=== PATIENT | female | born 1955 | race Caucasian/White ===

== ENCOUNTER 2016-06-30 00:41 | Inpatient (IN) | payer MEDICARE, MEDICAID ==
[~2016-06-30] VITALS: Ht 165.1 cm; Wt 82.1 kg
[2016-06-30] VITALS (21 sets, daily range): BP systolic 109–147; BP diastolic 65–90; PULSE 74–119; RESP 16–35; TEMP 97.5–98.4; O2SAT 89–98
[~2016-06-30 00:41] MED LIST: ADVAI500I PO; ALBU1AER INH; AZIT250T74 PO; BENZ100 PO; CARV12.5 PO; CLON1 PO; DUONI NEB; FURO20 PO; LISI-363 PO; MONT10TA2 PO; PROT40TA PO; QUET1TAB65 PO; SERT100 PO; SYMB160A INH
[2016-06-30] MEDS ORDERED: SODIUM CHLORIDE 0.9% FLUSH 10 ML FLUSH IVF PRN ×2 (01:00→02:15)
[2016-06-30] MEDS ORDERED: PROT40TA PO (01:03)
[2016-06-30] MEDS ORDERED: DULE100A INH (01:03)
[2016-06-30] MEDS ORDERED: CLON1TAB PO (01:03)
[2016-06-30] MEDS ORDERED: FURO1TAB62 PO (01:03)
[2016-06-30] MEDS ORDERED: CARV10 PO (01:03)
[2016-06-30] MEDS ORDERED: ALBUAER3 INH (01:03)
[2016-06-30] MEDS ORDERED: SERO400T PO (01:03)
[2016-06-30] MEDS ORDERED: LISI-515 PO (01:03)
--- NOTE | 2016-06-30 01:04 | PD ---
HPI Chief Complaint: Respiratory Symptoms Time Seen by Provider: 00:55 Travel History International Travel<30 days: No Contact w/Intl Traveler<30days: No Traveled to known affect area: No History of Present Illness HPI 61 year-old female presents to the emergency department by private transportation for evaluation of exacerbation of COPD. Patient has COPD, CHF, sleep apnea with CPAP at bedtime, uses as needed supplemental oxygen but does not know how many liters per minute nasal cannula she uses at bedtime, hypertension, anxiety depression. Symptoms have been present times one week. Patient denies fever or chills. Patient denies chest pain. Cough has been productive of white sputum. Patient has history of environmental and seasonal allergies. Patient denies tobacco use. PFSH Past Medical History Narrative Medical COPD, hypertension, dyslipidemia, steroid-induced hyperglycemia, CHF, bipolar disorder, sleep apnea, hepatitis C, orthopedic surgery, eye surgery, cholecystectomy, lumbar biopsynegative, no tobacco use, nursing notes reviewed Arthritis: Yes Asthma: Yes Autoimmune Disease: No Blood Disorders: No Anxiety: Yes Depression: Yes Heart Rhythm Problems: No Cancer: No Cardiac Catheterization: No Cardiovascular Problems: Yes (PVD) High Cholesterol: Yes Chemotherapy: No Chest Pain: No Congestive Heart Failure: Yes COPD: Yes Cerebrovascular Accident: No Coronary Artery Disease: No Diabetes: No (hyperglycemia secondary to steroid use) Diminished Hearing: No Endocrine: Yes (HYPERGLYCEMIA R/T STEROID USE) Gastrointestinal Disorders: Yes GERD: Yes (GERD) Glaucoma: No Genitourinary: No Headaches: Yes Hepatitis: Yes (C) Hiatal Hernia: No Hypertension: Yes Immune Disorder: No Implanted Vascular Access Dvce: Yes Kidney Stones: No Musculoskeletal: Yes Neurologic: Yes Psychiatric: Yes (BIPOLAR) Reproductive: No Respiratory: Yes Immunizations Current: Yes Migraines: No Myocardial Infarction: No Pneumonia: Yes Renal Failure: No Seizures: No Sleep Apnea: Yes (CPAP @ HOME. DOES NOT USE) Thyroid Disease: No Ulcer: No Menopausal: Yes : 1 Para: 1 Miscarriage: 0 : 0 Past Surgical History Abdominal Surgery: Yes (LIVER BIOPSY, CHOLECYSTECTOMY) AICD: No Appendectomy: No Arteriovenous Shunt: No Body Medical Devices: HARDWARE IN R FA Cardiac Surgery: No Cholecystectomy: Yes Coronary Artery Bypass Graft: No Ear Surgery: No Endocrine Surgery: No Eye Surgery: Yes (R EYE "LAZY" 1959) Genitourinary Surgery: No Gynecologic Surgery: No Insulin Pump: No Joint Replacement: No Neurologic Surgery: No Oral Surgery: Yes (WISDOM TOOTH EXTRACTION) Pacemaker: No Thoracic Surgery: Yes (BIOPSY LUNGS-NEGATIVE) Other Surgery: Yes Social History Alcohol Use: No Tobacco Use: No (QUIT JANUARY 2013) Substance Use: No Allergies-Medications (Allergen,Severity, Reaction): Coded Allergies: Penicillin (Verified Allergy, Severe, UNKNOWN, 06/30/16) WAS TOLD ALLERGIC A CHILD *MDRO Multi-Drug Resistant Organism (Verified Allergy, Unknown, 06/30/16) MRSA bronch washings 05/2006 MRSA Screen #1 on 08/25/2014 negative, MRSA Screen #2 on 08/27/2014 negative. No need to isolate for history of MRSA prior to 08/27/2014 per Infection Control. Reported Meds & Prescriptions Reported Meds & Active Scripts Active Reported Flonase Nasal [place] (Fluticasone Nasal [place]) 50 Mcg/Act [place] 50 Mcg EACH NARE BID Zoloft (Sertraline HCl) 100 Mg Tab 100 Mg PO DAILY Dulera 120 Act Inh (Mometasone-Formoterol 120 Act Inh) 100-5 Mcg/Act Inh 2 Puff INH BID Seroquel (Quetiapine Fumarate) 400 Mg Tab 500 Mg PO HS Protonix (Pantoprazole Sodium) 40 Mg Tab 40 Mg PO DAILY Lisinopril 20 Mg Tab 20 Mg PO DAILY Lasix (Furosemide) 20 Mg Tab 20 Mg PO BID Clonazepam 1 Mg Tab 1 Mg PO BID Coreg Cr 24 HR (Carvedilol) 10 Mg Cap 12.5 Mg PO DAILY Proair Hfa 8.5 GM Inh (Albuterol Sulfate) 90 Mcg/Act Aer 2 Puff INH Q4-6H PRN 108 mcg/actuation Review of Systems Except as stated in HPI: all other systems reviewed are Neg General / Constitutional: No: Fever, Chills HENT: No: Congestion Cardiovascular: No: Chest Pain or Discomfort Respiratory: Positive: Cough, Shortness of Breath, Wheezing, No: Pleuritic Pain Gastrointestinal: No: Nausea, Vomiting, Abdominal Pain Genitourinary: No: Flank Pain Musculoskeletal: No: Myalgias, Arthralgias, Edema Skin: No Rash Neurologic: No: Weakness Psychiatric: Positive: Anxiety Endocrine: No: Heat Intolerance Hematologic/Lymphatic: No: Easy Bruising Physical Exam Narrative GENERAL: Well-developed well-nourished female with respiratory distress and some accessory muscle use; no stridor or hoarseness SKIN: Warm and dry. HEAD: Normocephalic. EYES: No scleral icterus. No injection or drainage. NECK: Supple, trachea midline. No JVD or lymphadenopathy. CARDIOVASCULAR: Increased Regular rate and rhythm without murmurs, gallops, or rubs. RESPIRATORY: Breath sounds equal bilaterally diffuse expiratory wheezes throughout all lung myers no Rales or rhonchi. No accessory muscle use. GASTROINTESTINAL: Abdomen soft, non-tender, nondistended. MUSCULOSKELETAL: No cyanosis, or edema. BACK: Nontender without obvious deformity. No CVA tenderness. Data Data Last Documented VS Vital Signs Date Time Temp Pulse Resp B/P Pulse Ox O2 Delivery O2 Flow Rate FiO2 06/30/16 02:12 97 Nasal Cannula 2.00 06/30/16 00:47 97.5 95 24 142/90 Orders Complete Blood Count With Diff (06/30/16 00:55) Comprehensive Metabolic Panel (06/30/16 00:55) B-Type Natriuretic Peptide (06/30/16 00:55) Magnesium (Mg) (06/30/16 00:55) Troponin I (06/30/16 00:55) Iv Access Insert/Monitor (06/30/16 00:55) Ecg Monitoring (06/30/16 00:55) Oximetry (06/30/16 00:55) Oxygen Administration (06/30/16 00:55) Chest, Single Ap (06/30/16 00:55) Sodium Chloride 0.9% Flush (Ns Flush) (06/30/16 01:00) Albuterol-Ipratropium Neb (Duoneb Neb) (06/30/16 01:00) Ondansetron Inj (Zofran Inj) (06/30/16 01:15) Electrocardiogram (06/30/16 ) Methylprednisolone So Succ Inj (Solumedr (06/30/16 01:30) Acetaminophen (Tylenol) (06/30/16 02:00) Guaifen-Cod 200-20 Mg/10ml Liq (Robituss (06/30/16 02:00) Albuterol-Ipratropium Neb (Duoneb Neb) (06/30/16 02:15) Admit Order (Ed Use Only) (06/30/16 ) ^ Saline Lock (06/30/16 02:10) Resp Oxygen Michael C Titrat 1-4 L (06/30/16 ) ^ Notify Dr: Other (06/30/16 02:10) Sodium Chloride 0.9% Flush (Ns Flush) (06/30/16 09:00) Sodium Chloride 0.9% Flush (Ns Flush) (06/30/16 02:15) Labs Laboratory Tests Test 06/30/16 01:10 White Blood Count 8.7 TH/MM3 Red Blood Count 4.68 MIL/MM3 Hemoglobin 12.0 GM/DL Hematocrit 37.0 % Mean Corpuscular Volume 79.0 FL Mean Corpuscular Hemoglobin 25.7 PG Mean Corpuscular Hemoglobin 32.6 % Concent Red Cell Distribution Width 14.1 % Platelet Count 283 TH/MM3 Mean Platelet Volume 6.5 FL Neutrophils (%) (Auto) 50.3 % Lymphocytes (%) (Auto) 34.3 % Monocytes (%) (Auto) 6.4 % Eosinophils (%) (Auto) 8.6 % Basophils (%) (Auto) 0.4 % Neutrophils # (Auto) 4.4 TH/MM3 Lymphocytes # (Auto) 3.0 TH/MM3 Monocytes # (Auto) 0.6 TH/MM3 Eosinophils # (Auto) 0.7 TH/MM3 Basophils # (Auto) 0.0 TH/MM3 CBC Comment DIFF FINAL Differential Comment Sodium Level 139 MEQ/L Potassium Level 3.9 MEQ/L Chloride Level 102 MEQ/L Carbon Dioxide Level 27.2 MEQ/L Anion Gap 10 MEQ/L Blood Urea Nitrogen 24 MG/DL Creatinine 1.30 MG/DL Estimat Glomerular Filtration 42 ML/MIN Rate Random Glucose 166 MG/DL Calcium Level 8.9 MG/DL Magnesium Level 1.8 MG/DL Total Bilirubin 0.3 MG/DL Aspartate Amino Transf 20 U/L (AST/SGOT) Alanine Aminotransferase 26 U/L (ALT/SGPT) Alkaline Phosphatase 98 U/L Troponin I LESS THAN 0.02 NG/ML B-Type Natriuretic Peptide 26 PG/ML Total Protein 8.6 GM/DL Albumin 4.0 GM/DL MDM Medical Decision Making Medical Screen Exam Complete: Yes Emergency Medical Condition: Yes Medical Record Reviewed: Yes Interpretation(s) EKG normal sinus rhythm rate 78 QS septally age-indeterminate no acute ST elevation or injury pattern change noted Last Impressions Chest X-Ray 06/30/16 0055 Signed Impressions: Service Date/Time: Thursday, June 30, 2016 01:19 - CONCLUSION: No acute cardiopulmonary abnormality is identified. Justus Ying MD CBC & BMP Diagram 06/30/16 01:10 Vital Signs Date Time Temp Pulse Resp B/P Pulse Ox O2 Delivery O2 Flow Rate FiO2 06/30/16 01:56 Nasal Cannula 2 06/30/16 01:20 Room Air 06/30/16 01:13 99 Aerosol Mask 6 06/30/16 00:47 97.5 95 24 142/90 90 Troponin I less than 0.02, not elevated; BNP: 26, not elevated Differential Diagnosis Exacerbation COPD, bronchitis, pneumonia, CHF, ACS, PE Narrative Course Patient placed on quality assurance monitor body IV access obtained specimens collected and sent for resulting patient administered DuoNeb 2 DuoNeb updraft 1, Solu-Medrol 125 mg IV, Zofran 4 mg IV Patient complains of severe headache after forceful coughing repetitively since arrival; cough productive of white mucous no phlegm no hemoptysis. Patient is afebrile. Patient administer acetaminophen 650 mg times one dose. O2 saturation on 2 L/m nasal cannula supplemental oxygen 95-96% patient given additional updraft treatment. More comfortable but continued to have spasms of coughing given one time dose of cough medicine. Patient now able to talk without episodes of coughing spasm. No accessory muscle use. Sepsis Criteria SIRS Criteria (2 or more): Heart rate over 90, RR > 20 or PaCO2 < 32 Physician Communication Physician Communication discussed with Royce Qiu PA-C admit to Dr Saldana; call back re: obs v inpatient ---OBS Diagnosis Primary Impression: COPD (chronic obstructive pulmonary disease) Qualified Code: J44.1 - Chronic obstructive pulmonary disease with acute exacerbation Admitting Information Admitting Physician Requests: Lin Delgado MD Jun 30, 2016 01:04
[2016-06-30] MEDS ORDERED: FLUT1SPR5 EACH NARE (01:05)
[2016-06-30] MEDS: RESP: ALBUTEROL 2.5 MG/IPRATROPIUM 0.5 MG NEB (SCH) INH ×5 (01:05→22:00)
[2016-06-30] MEDS ORDERED: ZOLO100T PO (01:05)
[2016-06-30 01:15] LABS: AUTOMATED NEUTROPHIL # 4.4 TH/MM3 (1.8-7.7); BASOPHIL % 0.4 % (0.0-2.0); EOSINOPHIL # 0.7 TH/MM3 (0-0.4); EOSINOPHIL % 8.6 % (0.0-4.0); HEMO FLAGS DIFF FINAL; LYMPH % 34.3 % (9.0-44.0); MEAN CORPUSCULAR HEMOGLOBIN 25.7 PG (27.0-34.0); MEAN CORPUSCULAR HGB CONC 32.6 % (32.0-36.0); MONO % 6.4 % (0.0-8.0); NEUT % 50.3 % (16.0-70.0); PLATELET COUNT 283 TH/MM3 (150-450); RED BLOOD COUNT 4.68 MIL/MM3 (4.00-5.30); RED CELL DISTRIBUTION WIDTH 14.1 % (11.6-17.2); WHITE BLOOD COUNT 8.7 TH/MM3 (4.0-11.0)
[2016-06-30] MEDS ORDERED: ONDANSETRON HCL 4 MG/2 ML VIAL IV PUSH ONE (01:15)
[2016-06-30 01:22] LABS: CHLORIDE 102 MEQ/L (98-107); POTASSIUM 3.9 MEQ/L (3.5-5.1); SODIUM (NA) 139 MEQ/L (136-145)
[2016-06-30 01:26] LABS: ANION GAP 10 MEQ/L (5-15); BICARBONATE 27.2 MEQ/L (21.0-32.0); BLOOD UREA NITROGEN 24 MG/DL (7-18); MAGNESIUM 1.8 MG/DL (1.5-2.5)
[2016-06-30 01:29] LABS: ALT (GPT) 26 U/L (10-53); AST (GOT) 20 U/L (15-37); GLOMERULAR FILTRATION RATE 42 ML/MIN (>89)
[2016-06-30 01:30] LABS: TOTAL BILIRUBIN ADULT 0.3 MG/DL (0.2-1.0)
[2016-06-30] MEDS ORDERED: methylPREDNISolone SOD SUCC 125 MG/2 ML VIAL IV PUSH ONE (01:30)
--- NOTE | 2016-06-30 01:30 | RADHPO ---
EXAM DATE/TIME: 06/30/2016 01:19 [facility] COMPARISON: CHEST SINGLE AP, April 26, 2015, 5:03. INDICATIONS : Shortness of breath for 12 hours MEDICAL HISTORY : Chronic obstructive pulmonary disease. SURGICAL HISTORY : None. ENCOUNTER: Initial ACUITY: 1 day PAIN SCORE: 0/10 LOCATION: Bilateral chest FINDINGS: Portable AP view of the chest demonstrates a normal-sized cardiac silhouette. No effusion, consolidat ion, or pneumothorax is visualized. The bones and soft tissues demonstrate no acute abnormality. CONCLUSION: No acute cardiopulmonary abnormality is identified. Justus Ying MD on June 30, 2016 at 1:28 Board Certified Radiologist. This report was verified electronically.
[2016-06-30 01:32] LABS: ALKALINE PHOSPHATASE 98 U/L (45-117)
[2016-06-30] MEDS ORDERED: ACETAMINOPHEN 325 MG TAB PO ONE (02:00)
[2016-06-30] MEDS ORDERED: guaiFENesin/CODEINE SYRUP 200 MG/20 MG/10 ML CUP PO ONE (02:00)
[2016-06-30] MEDS ORDERED: RESP: ALBUTEROL 2.5 MG/IPRATROPIUM 0.5 MG NEB (SCH) NEB ONE (02:15)
[2016-06-30] MEDS: SODIUM CHLOR 0.9% 1000 ML INJ 1,000 ML IV SCH ×2 (02:58→16:07)
[2016-06-30] MEDS ORDERED: BISACODYL 10 MG SUPP RECTAL PRN (03:00)
[2016-06-30] MEDS ORDERED: RESP: ALBUTEROL 2.5 MG/3 ML NEB (PRN) INH (03:00)
[2016-06-30] MEDS ORDERED: SENNOSIDES 8.6 MG TAB PO PRN (03:00)
[2016-06-30] MEDS ORDERED: ACETAMINOPHEN 325 MG TAB PO PRN (03:00)
[2016-06-30] MEDS ORDERED: ONDANSETRON HCL 4 MG/2 ML VIAL IVP PRN (03:00)
[2016-06-30] MEDS: HEPARIN SODIUM - SQ 10,000 UNITS/ML VIAL SQ SCH ×2 (03:01→15:00)
[2016-06-30] MEDS: traMADol HCL 50 MG TAB PO PRN ×3 (06:28→18:23)
[2016-06-30] MEDS: guaiFENesin/CODEINE SYRUP 200 MG/20 MG/10 ML CUP PO PRN ×2 (07:57→18:26)
[2016-06-30] MEDS ORDERED: SODIUM CHLORIDE 0.9% FLUSH 10 ML FLUSH IV FLUSH SCH (09:00)
[2016-06-30] MEDS: SODIUM CHLORIDE 0.9% FLUSH 10 ML FLUSH IV FLUSH SCH ×2 (09:50→20:31)
[2016-06-30] MEDS: PANTOPRAZOLE SOD 40 MG DELAYED RELEASE TAB PO SCH (09:51)
[2016-06-30] MEDS: SERTRALINE HCL 100 MG TAB PO SCH (09:51)
[2016-06-30] MEDS: methylPREDNISolone SOD SUCC 125 MG/2 ML VIAL IVP SCH ×3 (09:51→20:31)
[2016-06-30] MEDS: LISINOPRIL 20 MG TAB PO SCH (09:51)
[2016-06-30] MEDS: CARVEDILOL 12.5 MG TAB PO SCH (09:51)
[2016-06-30] MEDS: FUROSEMIDE 20 MG TAB PO SCH ×2 (09:52→18:00)
--- NOTE | 2016-06-30 11:48 | MH ---
cc: RAGHU MACHADO MD DATE OF ADMISSION 06/30/2016 CHIEF COMPLAINT Shortness of breath HISTORY OF PRESENT ILLNESS This is a 61-year-old female with past medical and surgical history significant for COPD, hypertension, hyperlipidemia, steroid induced hyperglycemia, congestive heart failure, bipolar disorder, sleep apnea, hepatitis C, eye surgery, cholecystectomy, history of asthma and depression, peripheral vascular disease, headache, gastroesophageal reflux disease, hepatitis C, C-PAP at home for sleep apnea, has hardware in the right forearm and hip hardware right side, cholecystectomy, liver biopsy, has a right lazy eye, wisdom tooth extraction, a lung biopsy which was negative. He came to the ER at [facility] complaining of shortness of breath. He uses C-PAP at bedtime and also uses supplemental oxygen as needed and she says she has been feeling short of breath to the extent that she decided to go to the [facility] in [place]. She has some cough productive of white sputum. She has a history of environmental and seasonal allergies. When I examined the patient, the patient feels better and denies any chest pain, any abdominal pain, any nausea, vomiting, diarrhea, constipation or any other symptoms. Other than that, nothing significant. PAST MEDICAL AND SURGICAL HISTORY As dictated above. SOCIAL HISTORY Denies smoking, but she is ex-smoker smoked for 40 years one pack a day and quit in 2012. Denies alcohol or drug abuse. She lives at home with son. She is on disability. She worked for the [employer] in the past. FAMILY HISTORY Significant for cancer. ALLERGIES PENICILLIN MEDICATIONS Include: 1. Flonase nasal spray 50 mcg one spray to nostril twice a day. 2. Zoloft 100 mg p.o. daily 3. Dulera two puffs inhalation twice a day 4. Seroquel 400 mg p.o. at bedtime 5. Protonix 40 mg p.o. daily 6. Lisinopril 20 mg daily 7. Lasix 20 mg p.o. b.i.d. 8. Clonazepam 1 mg p.o. b.i.d. 9. Coreg 12.5 mg p.o. daily 10. ProAir HFA two puffs inhalation q4-6h REVIEW OF SYSTEMS Positive for mild short of breath, all other review of systems are negative. PHYSICAL EXAMINATION This is a 61-year female laying on the bed comfortably not in acute distress. VITAL SIGNS: Temperature 98.4, heart rate 83, respirations 18, blood pressure 147/81, O2 saturation 98% on two liters nasal cannula. HEENT: Normocephalic, atraumatic. EOMI. PERRL. Oral mucosa moist. NECK: Supple. No visible thyromegaly or neck mass. Trachea is central. CARDIOVASCULAR: Regular rate and rhythm. RESPIRATORY: Bilateral wheezing, decreased air entry bilaterally. ABDOMEN: Soft, nontender. Bowel sounds audible. EXTREMITIES: No cyanosis or clubbing. Full range of motion of all extremities. NEUROLOGIC: Awake, alert, and oriented x4. No focal deficits. SKIN: Warm and dry. PSYCH: The patient is cooperative. Mood and affect is normal. LABORATORY DATA Include CBC is totally unremarkable. BMP totally unremarkable except for creatinine 1.30 high, BUN 24 high, GFR 42 low, glucose 166 high, troponin-I less than 0.02, BNP 26, total protein 8.6, albumin 4.0. LFTs are normal. Chest x-ray Was done shows no acute cardiopulmonary abnormality identified. ASSESSMENT/PLAN 1. This is a 61-year female who came to the ER diagnosed with shortness of breath most likely secondary to COPD/CHF exacerbation, most likely acute on chronic systolic heart failure. We will do strict I's and O's daily with fluid restriction to 1.5 liters a day. Salt restriction to 2 grams a day. The patient is on Lasix 20 mg p.o. daily, Solu-Medrol 60 mg IV q6-hour, Robitussin AC 5 mL q6-hour, DuoNeb nebulization q6h. I will consult pulmonary for further recommendation. 2. A history of bipolar disorder. Continue home medications. 3. History of depression. Continue Zoloft. 4. History of hypertension. Continue home medication. We will monitor blood pressure. 5. History of anxiety, continue his clonazepam. 6. History of congestive heart failure most likely acute on chronic systolic heart failure. Continue the home medications. 7. Drug induced hyperglycemia. We will monitor sugar. 8. History of sleep apnea. The patient is on C-PAP. 9. History of hepatitis C. 10. Hyperlipidemia. Continue home medication. 11. DVT prophylaxis, heparin 5000 units subcutaneous twice a day. 12. GI prophylaxis Protonix 40 mg p.o. daily. We are going to manage the patient on a daily basis and make recommendations on a daily basis. Raghu Machado MD EA/JESSICA /11:00 AM /11:25 AM
[2016-06-30] MEDS: FLUTICASONE PROPIONATE 50 MCG/ACT 16 GM NASAL SPRAY EACH NARE SCH ×2 (12:09→20:31)
--- NOTE | 2016-06-30 16:53 | EKG ---
Date Performed: 06/30/2016 Time Performed: 01:58:24 PTAGE: 61 years EKG: Sinus rhythm Normal ECG Compared to prior tracing no significant change PREVIOUS TRACING : 04/25/2015 04.14 DOCTOR: Lizzeth Mcdermott Interpretating Date/Time 06/30/2016 16:51:33
[2016-06-30] MEDS: QUEtiapine FUMARATE 100 MG TAB PO SCH (20:32)
[2016-06-30] MEDS: clonazePAM 1 MG TAB PO SCH (22:05)
[2016-07-01] VITALS (22 sets, daily range): BP systolic 93–140; BP diastolic 57–70; PULSE 66–90; RESP 14–32; TEMP 97.4–98; O2SAT 93–96
[2016-07-01] MEDS: SODIUM CHLOR 0.9% 1000 ML INJ 1,000 ML IV SCH ×2 (02:00→18:47)
[2016-07-01] MEDS: methylPREDNISolone SOD SUCC 125 MG/2 ML VIAL IVP SCH ×4 (02:06→21:05)
[2016-07-01] MEDS: HEPARIN SODIUM - SQ 10,000 UNITS/ML VIAL SQ SCH ×2 (02:06→14:45)
[2016-07-01] MEDS: guaiFENesin/CODEINE SYRUP 200 MG/20 MG/10 ML CUP PO PRN ×3 (02:06→18:07)
[2016-07-01] MEDS: traMADol HCL 50 MG TAB PO PRN ×3 (02:07→18:08)
[2016-07-01] MEDS: RESP: ALBUTEROL 2.5 MG/IPRATROPIUM 0.5 MG NEB (SCH) INH ×4 (02:28→21:25)
[2016-07-01 06:11] LABS: AUTOMATED NEUTROPHIL # 5.9 TH/MM3 (1.8-7.7); BASOPHIL % 0.1 % (0.0-2.0); HEMATOCRIT 31.1 % (35.0-46.0); HEMO FLAGS DIFF FINAL; LYMPH % 10.4 % (9.0-44.0); LYMPHOCYTE # 0.7 TH/MM3 (1.0-4.8); MEAN CELL VOLUME 79.8 FL (80.0-100.0); MEAN CORPUSCULAR HEMOGLOBIN 25.7 PG (27.0-34.0); MEAN CORPUSCULAR HGB CONC 32.3 % (32.0-36.0); MONO % 3.6 % (0.0-8.0); NEUT % 85.9 % (16.0-70.0); PLATELET COUNT 183 TH/MM3 (150-450); RED CELL DISTRIBUTION WIDTH 13.9 % (11.6-17.2); WHITE BLOOD COUNT 6.8 TH/MM3 (4.0-11.0)
[2016-07-01 06:13] LABS: CHLORIDE 100 MEQ/L (98-107); POTASSIUM 4.4 MEQ/L (3.5-5.1); SODIUM (NA) 138 MEQ/L (136-145)
[2016-07-01 06:17] LABS: ANION GAP 10 MEQ/L (5-15); BICARBONATE 28.2 MEQ/L (21.0-32.0); BLOOD UREA NITROGEN 25 MG/DL (7-18)
[2016-07-01 06:20] LABS: ALT (GPT) 21 U/L (10-53); AST (GOT) 11 U/L (15-37); GLOMERULAR FILTRATION RATE 46 ML/MIN (>89)
[2016-07-01 06:21] LABS: TOTAL BILIRUBIN ADULT 0.3 MG/DL (0.2-1.0)
[2016-07-01 06:23] LABS: ALKALINE PHOSPHATASE 71 U/L (45-117)
[2016-07-01] MEDS: FUROSEMIDE 20 MG TAB PO SCH ×2 (09:00→18:00)
[2016-07-01] MEDS: SERTRALINE HCL 100 MG TAB PO SCH (09:37)
--- NOTE | 2016-07-01 09:37 | HHI.PR ---
Subjective History of Present Illness Patient still SOB and have wheezing and coughing have yellow phlegm. Review of Systems Constitutional Constitutional: Fatigue, Weakness Pulmonary Respiratory: Coughing, Shortness of Breath, Wheezing Vitals/Results Intake & Output 06/30/16 06/30/16 07/01/16 15:00 23:00 07:00 Intake Total 285 ml 1041 ml 240 ml Output Total 900 ml 700 ml Balance 285 ml 141 ml -460 ml Intake Oral 720 ml 240 ml IV Total 285 ml 321 ml Output Urine Total 900 ml 700 ml Vital Signs Vital Signs Date Time Temp Pulse Resp B/P Pulse Ox O2 Delivery O2 Flow Rate FiO2 07/01/16 06:00 70 07/01/16 04:00 97.8 82 14 140/70 94 07/01/16 03:00 79 07/01/16 02:28 95 Nasal Cannula 2.00 07/01/16 02:00 78 07/01/16 01:57 77 07/01/16 00:00 97.6 77 14 114/59 93 07/01/16 00:00 77 06/30/16 23:00 85 06/30/16 22:00 77 06/30/16 20:14 89 21 06/30/16 20:00 98.0 80 24 124/74 94 06/30/16 20:00 79 06/30/16 19:00 80 06/30/16 18:00 92 06/30/16 17:00 86 06/30/16 16:00 98.2 88 35 136/81 92 06/30/16 16:00 96 06/30/16 15:00 80 06/30/16 14:00 78 06/30/16 13:00 80 06/30/16 12:00 74 06/30/16 12:00 98.0 74 16 114/81 96 06/30/16 10:40 97 Nasal Cannula 2.00 06/30/16 10:00 78 CBC/BMP: 07/01/16 0520 07/01/16 0520 Lab Results Laboratory Tests Test 07/01/16 05:20 White Blood Count 6.8 TH/MM3 Red Blood Count 3.90 MIL/MM3 Hemoglobin 10.1 GM/DL Hematocrit 31.1 % Mean Corpuscular Volume 79.8 FL Mean Corpuscular Hemoglobin 25.7 PG Mean Corpuscular Hemoglobin 32.3 % Concent Red Cell Distribution Width 13.9 % Platelet Count 183 TH/MM3 Mean Platelet Volume 6.6 FL Neutrophils (%) (Auto) 85.9 % Lymphocytes (%) (Auto) 10.4 % Monocytes (%) (Auto) 3.6 % Eosinophils (%) (Auto) 0.0 % Basophils (%) (Auto) 0.1 % Neutrophils # (Auto) 5.9 TH/MM3 Lymphocytes # (Auto) 0.7 TH/MM3 Monocytes # (Auto) 0.2 TH/MM3 Eosinophils # (Auto) 0.0 TH/MM3 Basophils # (Auto) 0.0 TH/MM3 CBC Comment DIFF FINAL Differential Comment Sodium Level 138 MEQ/L Potassium Level 4.4 MEQ/L Chloride Level 100 MEQ/L Carbon Dioxide Level 28.2 MEQ/L Anion Gap 10 MEQ/L Blood Urea Nitrogen 25 MG/DL Creatinine 1.20 MG/DL Estimat Glomerular Filtration 46 ML/MIN Rate Random Glucose 261 MG/DL Calcium Level 8.3 MG/DL Total Bilirubin 0.3 MG/DL Aspartate Amino Transf 11 U/L (AST/SGOT) Alanine Aminotransferase 21 U/L (ALT/SGPT) Alkaline Phosphatase 71 U/L Total Protein 7.8 GM/DL Albumin 3.6 GM/DL Physical Exam General General Appearance: No Acute Distress, Comfortable Eyes Eye Exam: Pupils Equal, Pupils Reactive, Sclera White, Extraocular Movement Intact Throat Throat Exam: Oral Mucosa [place] & Moist, Oral Pharynx Normal Neck Neck Exam: Neck Supple, Trachea Midline Pulmonary Resp Exam: Crackles Resp Remarks Bilateral wheezing. decreased air entry bilateral. Cardiology CV Exam: Regular, Normal Sinus Rhythm Gastrointestinal/Abdomen GI Exam: Soft, Non-Tender, Bowel Sounds Present Musculoskeletal MS Exam: Normal Tone Integumentary Skin Exam: Warm, Dry Extremeties Extremities Exam: No Edema Neurologic Neuro Exam: Alert, Awake, Oriented, Speech Clear, Moving All Extremities VTE Prophylaxis VTE Prophylaxis Meds: Heparin PUD Prophylasis PUD Prophylaxis: Protonix Assessment/Plan Assessment/Plan ASSESSMENT/PLAN 1. This is a 61-year female who came to the ER diagnosed with shortness of breath most likely secondary to COPD/CHF exacerbation, most likely acute on chronic systolic heart failure. We will do strict I's and O's daily with fluid restriction to 1.5 liters a day. Salt restriction to 2 grams a day. The patient is on Lasix 20 mg p.o. daily, Solu-Medrol 60 mg IV q6-hour, Robitussin AC 5 mL q6-hour, DuoNeb nebulization q6h. 2. A history of bipolar disorder. Continue home medications. 3. History of depression. Continue Zoloft. 4. History of hypertension. Continue home medication. We will monitor blood pressure. 5. History of anxiety, continue his clonazepam. 6. History of congestive heart failure most likely acute on chronic systolic heart failure. Continue the home medications. 7. Drug induced hyperglycemia. We will monitor sugar. 8. History of sleep apnea. The patient is on C-PAP. 9. History of hepatitis C. 10. Hyperlipidemia. Continue home medication. 11. DVT prophylaxis, heparin 5000 units subcutaneous twice a day. 12. GI prophylaxis Protonix 40 mg p.o. daily. Check CBC with diff CMP in AM. We are going to manage the patient on a daily basis and make recommendations on a daily basis. Discussed Condition with: Patient Raghu Saldana MD Jul 01, 2016 09:37
[2016-07-01] MEDS: clonazePAM 1 MG TAB PO SCH ×2 (09:38→21:05)
[2016-07-01] MEDS: PANTOPRAZOLE SOD 40 MG DELAYED RELEASE TAB PO SCH (09:38)
[2016-07-01] MEDS: LISINOPRIL 20 MG TAB PO SCH (09:38)
[2016-07-01] MEDS: CARVEDILOL 12.5 MG TAB PO SCH (09:38)
[2016-07-01] MEDS: SODIUM CHLORIDE 0.9% FLUSH 10 ML FLUSH IV FLUSH SCH ×2 (09:39→21:04)
[2016-07-01] MEDS: FLUTICASONE PROPIONATE 50 MCG/ACT 16 GM NASAL SPRAY EACH NARE SCH ×2 (09:40→21:03)
[2016-07-01] MEDS: QUEtiapine FUMARATE 100 MG TAB PO SCH (21:05)
[2016-07-02] VITALS (7 sets, daily range): BP systolic 102–150; BP diastolic 64–96; PULSE 67–86; RESP 18–22; TEMP 97.2–99; O2SAT 93–98
[2016-07-02] MEDS: methylPREDNISolone SOD SUCC 125 MG/2 ML VIAL IVP SCH ×4 (02:41→20:47)
[2016-07-02] MEDS: HEPARIN SODIUM - SQ 10,000 UNITS/ML VIAL SQ SCH ×3 (02:41→16:06)
[2016-07-02] MEDS: SODIUM CHLORIDE 0.9% FLUSH 10 ML FLUSH IV FLUSH PRN (02:41)
[2016-07-02] MEDS: traMADol HCL 50 MG TAB PO PRN ×3 (02:46→20:50)
[2016-07-02] MEDS: guaiFENesin/CODEINE SYRUP 200 MG/20 MG/10 ML CUP PO PRN ×3 (02:46→20:50)
[2016-07-02] MEDS: RESP: ALBUTEROL 2.5 MG/IPRATROPIUM 0.5 MG NEB (SCH) INH ×4 (03:26→21:07)
[2016-07-02 06:15] LABS: AUTOMATED NEUTROPHIL # 7.1 TH/MM3 (1.8-7.7); EOSINOPHIL % 0.1 % (0.0-4.0); HEMATOCRIT 32.2 % (35.0-46.0); HEMO FLAGS DIFF FINAL; LYMPHOCYTE # 0.7 TH/MM3 (1.0-4.8); MEAN CELL VOLUME 80.5 FL (80.0-100.0); MEAN CORPUSCULAR HEMOGLOBIN 25.5 PG (27.0-34.0); MEAN CORPUSCULAR HGB CONC 31.6 % (32.0-36.0); MONO % 3.2 % (0.0-8.0); NEUT % 88.7 % (16.0-70.0); PLATELET COUNT 196 TH/MM3 (150-450); RED BLOOD COUNT 3.99 MIL/MM3 (4.00-5.30); RED CELL DISTRIBUTION WIDTH 13.9 % (11.6-17.2); WHITE BLOOD COUNT 8.1 TH/MM3 (4.0-11.0)
[2016-07-02 06:31] LABS: CHLORIDE 102 MEQ/L (98-107); POTASSIUM 4.2 MEQ/L (3.5-5.1); SODIUM (NA) 141 MEQ/L (136-145)
[2016-07-02 06:38] LABS: ANION GAP 11 MEQ/L (5-15); BICARBONATE 27.7 MEQ/L (21.0-32.0); BLOOD UREA NITROGEN 23 MG/DL (7-18)
[2016-07-02 06:41] LABS: ALT (GPT) 19 U/L (10-53); AST (GOT) 9 U/L (15-37); GLOMERULAR FILTRATION RATE 57 ML/MIN (>89)
[2016-07-02 06:42] LABS: TOTAL BILIRUBIN ADULT 0.2 MG/DL (0.2-1.0)
[2016-07-02 06:44] LABS: ALKALINE PHOSPHATASE 79 U/L (45-117)
[2016-07-02] MEDS: SODIUM CHLOR 0.9% 1000 ML INJ 1,000 ML IV SCH ×2 (08:07→20:49)
[2016-07-02] MEDS: FLUTICASONE PROPIONATE 50 MCG/ACT 16 GM NASAL SPRAY EACH NARE SCH ×2 (09:00→20:47)
[2016-07-02] MEDS: SODIUM CHLORIDE 0.9% FLUSH 10 ML FLUSH IV FLUSH SCH ×2 (09:00→20:48)
[2016-07-02] MEDS: FUROSEMIDE 20 MG TAB PO SCH ×2 (11:03→16:04)
[2016-07-02] MEDS: PANTOPRAZOLE SOD 40 MG DELAYED RELEASE TAB PO SCH (11:03)
[2016-07-02] MEDS: SERTRALINE HCL 100 MG TAB PO SCH (11:03)
[2016-07-02] MEDS: clonazePAM 1 MG TAB PO SCH ×2 (11:03→20:48)
[2016-07-02] MEDS: CARVEDILOL 12.5 MG TAB PO SCH (11:03)
[2016-07-02] MEDS: LISINOPRIL 20 MG TAB PO SCH (11:03)
--- NOTE | 2016-07-02 11:55 | HHI.PR ---
Subjective History of Present Illness Patient still SOB and have wheezing and coughing have yellow phlegm. no acute issue transfered to medical floor from ICU. Review of Systems Constitutional Constitutional: Fatigue, Weakness Pulmonary Respiratory: Coughing, Shortness of Breath, Wheezing Vitals/Results Intake & Output 07/01/16 07/01/16 07/02/16 15:00 23:00 07:00 Intake Total 480 ml Output Total 900 ml 600 ml Balance -420 ml -600 ml Intake Oral 480 ml IV Total 0 ml Output Urine Total 900 ml 600 ml # Bowel Movements 0 1 Vital Signs Vital Signs Date Time Temp Pulse Resp B/P Pulse Ox O2 Delivery O2 Flow Rate FiO2 07/02/16 09:15 94 Nasal Cannula 2.00 07/02/16 04:00 97.8 77 18 102/64 97 07/02/16 04:00 77 07/02/16 00:00 97.8 81 20 110/73 93 07/02/16 00:00 67 07/01/16 21:25 95 Nasal Cannula 2.00 07/01/16 20:00 83 07/01/16 20:00 98.0 90 24 100/69 95 07/01/16 18:00 88 07/01/16 17:00 70 07/01/16 16:00 97.8 72 32 126/69 94 07/01/16 16:00 70 07/01/16 15:00 72 07/01/16 14:00 90 07/01/16 13:00 72 07/01/16 12:00 97.4 68 22 93/57 96 07/01/16 12:00 66 CBC/BMP: 07/02/16 0535 07/02/16 0535 Lab Results Laboratory Tests Test 07/02/16 05:35 White Blood Count 8.1 TH/MM3 Red Blood Count 3.99 MIL/MM3 Hemoglobin 10.2 GM/DL Hematocrit 32.2 % Mean Corpuscular Volume 80.5 FL Mean Corpuscular Hemoglobin 25.5 PG Mean Corpuscular Hemoglobin 31.6 % Concent Red Cell Distribution Width 13.9 % Platelet Count 196 TH/MM3 Mean Platelet Volume 6.5 FL Neutrophils (%) (Auto) 88.7 % Lymphocytes (%) (Auto) 8.0 % Monocytes (%) (Auto) 3.2 % Eosinophils (%) (Auto) 0.1 % Basophils (%) (Auto) 0.0 % Neutrophils # (Auto) 7.1 TH/MM3 Lymphocytes # (Auto) 0.7 TH/MM3 Monocytes # (Auto) 0.3 TH/MM3 Eosinophils # (Auto) 0.0 TH/MM3 Basophils # (Auto) 0.0 TH/MM3 CBC Comment DIFF FINAL Differential Comment Sodium Level 141 MEQ/L Potassium Level 4.2 MEQ/L Chloride Level 102 MEQ/L Carbon Dioxide Level 27.7 MEQ/L Anion Gap 11 MEQ/L Blood Urea Nitrogen 23 MG/DL Creatinine 1.00 MG/DL Estimat Glomerular Filtration 57 ML/MIN Rate Random Glucose 292 MG/DL Calcium Level 8.7 MG/DL Total Bilirubin 0.2 MG/DL Aspartate Amino Transf 9 U/L (AST/SGOT) Alanine Aminotransferase 19 U/L (ALT/SGPT) Alkaline Phosphatase 79 U/L Total Protein 7.5 GM/DL Albumin 3.5 GM/DL Physical Exam General General Appearance: No Acute Distress, Comfortable Eyes Eye Exam: Pupils Equal, Pupils Reactive, Sclera White, Extraocular Movement Intact Throat Throat Exam: Oral Mucosa [place] & Moist, Oral Pharynx Normal Neck Neck Exam: Neck Supple, Trachea Midline Pulmonary Resp Exam: Crackles Resp Remarks Bilateral wheezing. decreased air entry bilateral. Cardiology CV Exam: Regular, Normal Sinus Rhythm Gastrointestinal/Abdomen GI Exam: Soft, Non-Tender, Bowel Sounds Present Musculoskeletal MS Exam: Normal Tone Integumentary Skin Exam: Warm, Dry Extremeties Extremities Exam: No Edema Neurologic Neuro Exam: Alert, Awake, Oriented, Speech Clear, Moving All Extremities VTE Prophylaxis VTE Prophylaxis Meds: Heparin PUD Prophylasis PUD Prophylaxis: Protonix Assessment/Plan Assessment/Plan ASSESSMENT/PLAN 1. This is a 61-year female who came to the ER diagnosed with shortness of breath most likely secondary to COPD/CHF exacerbation, most likely acute on chronic systolic heart failure. We will do strict I's and O's daily with fluid restriction to 1.5 liters a day. Salt restriction to 2 grams a day. The patient is on Lasix 20 mg p.o. daily, Solu-Medrol 60 mg IV q6-hour, Robitussin AC 5 mL q6-hour, DuoNeb nebulization q6h. 2. A history of bipolar disorder. Continue home medications. 3. History of depression. Continue Zoloft. 4. History of hypertension. Continue home medication. We will monitor blood pressure. 5. History of anxiety, continue his clonazepam. 6. History of congestive heart failure most likely acute on chronic systolic heart failure. Continue the home medications. 7. Drug induced hyperglycemia. We will monitor sugar. 8. History of sleep apnea. The patient is on C-PAP. 9. History of hepatitis C. 10. Hyperlipidemia. Continue home medication. 11. DVT prophylaxis, heparin 5000 units subcutaneous twice a day. 12. GI prophylaxis Protonix 40 mg p.o. daily. Check CBC with diff CMP in AM. We are going to manage the patient on a daily basis and make recommendations on a daily basis. Discussed Condition with: Patient Raghu Saldana MD Jul 02, 2016 11:55
[2016-07-02] MEDS: QUEtiapine FUMARATE 100 MG TAB PO SCH (20:48)
[2016-07-02] MEDS: ALBUTEROL SULFATE 90 MCG/ACT HFA 8 GM INHALER INH PRN (21:01)
[2016-07-03] VITALS (8 sets, daily range): BP systolic 146–175; BP diastolic 71–114; PULSE 80–87; RESP 18–20; TEMP 96.2–97.9; O2SAT 95–98
[2016-07-03] MEDS: SODIUM CHLORIDE 0.9% FLUSH 10 ML FLUSH IV FLUSH PRN (01:39)
[2016-07-03] MEDS: guaiFENesin/CODEINE SYRUP 200 MG/20 MG/10 ML CUP PO PRN ×5 (01:39→22:42)
[2016-07-03] MEDS: traMADol HCL 50 MG TAB PO PRN ×4 (01:39→22:42)
[2016-07-03] MEDS: methylPREDNISolone SOD SUCC 125 MG/2 ML VIAL IVP SCH ×4 (01:39→19:48)
[2016-07-03] MEDS: cloNIDine HCL 0.1 MG TAB PO PRN ×2 (01:39→17:21)
[2016-07-03] MEDS: HEPARIN SODIUM - SQ 10,000 UNITS/ML VIAL SQ SCH ×3 (03:00→14:40)
[2016-07-03] MEDS: RESP: ALBUTEROL 2.5 MG/IPRATROPIUM 0.5 MG NEB (SCH) INH ×4 (03:20→21:03)
[2016-07-03 07:24] LABS: AUTOMATED NEUTROPHIL # 6.9 TH/MM3 (1.8-7.7); BASOPHIL % 0.2 % (0.0-2.0); EOSINOPHIL % 0.2 % (0.0-4.0); HEMATOCRIT 32.4 % (35.0-46.0); HEMO FLAGS DIFF FINAL; LYMPH % 9.3 % (9.0-44.0); LYMPHOCYTE # 0.7 TH/MM3 (1.0-4.8); MEAN CELL VOLUME 80.3 FL (80.0-100.0); MEAN CORPUSCULAR HEMOGLOBIN 26.4 PG (27.0-34.0); MEAN CORPUSCULAR HGB CONC 32.8 % (32.0-36.0); MONO % 3.2 % (0.0-8.0); NEUT % 87.1 % (16.0-70.0); PLATELET COUNT 185 TH/MM3 (150-450); RED BLOOD COUNT 4.03 MIL/MM3 (4.00-5.30); RED CELL DISTRIBUTION WIDTH 14.1 % (11.6-17.2); WHITE BLOOD COUNT 7.9 TH/MM3 (4.0-11.0)
[2016-07-03 07:25] LABS: CHLORIDE 99 MEQ/L (98-107); POTASSIUM 4.1 MEQ/L (3.5-5.1); SODIUM (NA) 140 MEQ/L (136-145)
[2016-07-03 07:29] LABS: ANION GAP 12 MEQ/L (5-15); BICARBONATE 29.3 MEQ/L (21.0-32.0)
[2016-07-03 07:30] LABS: BLOOD UREA NITROGEN 25 MG/DL (7-18)
[2016-07-03 07:40] LABS: ALKALINE PHOSPHATASE 78 U/L (45-117); ALT (GPT) 30 U/L (10-53); AST (GOT) 24 U/L (15-37); GLOMERULAR FILTRATION RATE 57 ML/MIN (>89); TOTAL BILIRUBIN ADULT 0.4 MG/DL (0.2-1.0)
--- NOTE | 2016-07-03 08:08 | HHI.PR ---
Subjective History of Present Illness Patient still SOB and have wheezing and coughing have yellow phlegm. no acute issue started Levaquin 500 mg IV Daily Review of Systems Constitutional Constitutional: Fatigue, Weakness Pulmonary Respiratory: Coughing, Shortness of Breath, Wheezing Vitals/Results Intake & Output 07/02/16 07/02/16 07/03/16 15:00 23:00 07:00 Intake Total 525 ml 460 ml Balance 525 ml 460 ml Intake Oral 525 ml 460 ml # Voids 3 2 # Bowel Movements 1 0 Vital Signs Vital Signs Date Time Temp Pulse Resp B/P Pulse Ox O2 Delivery O2 Flow Rate FiO2 07/03/16 00:00 97.9 83 20 175/107 98 07/02/16 21:09 98 Nasal Cannula 2.00 07/02/16 20:00 97.3 79 20 150/96 95 07/02/16 16:00 97.2 80 20 121/83 96 07/02/16 12:00 99.0 86 22 145/91 95 07/02/16 09:15 94 Nasal Cannula 2.00 CBC/BMP: 07/03/16 0540 07/03/16 0540 Lab Results Laboratory Tests Test 07/03/16 05:40 White Blood Count 7.9 TH/MM3 Red Blood Count 4.03 MIL/MM3 Hemoglobin 10.6 GM/DL Hematocrit 32.4 % Mean Corpuscular Volume 80.3 FL Mean Corpuscular Hemoglobin 26.4 PG Mean Corpuscular Hemoglobin 32.8 % Concent Red Cell Distribution Width 14.1 % Platelet Count 185 TH/MM3 Mean Platelet Volume 6.9 FL Neutrophils (%) (Auto) 87.1 % Lymphocytes (%) (Auto) 9.3 % Monocytes (%) (Auto) 3.2 % Eosinophils (%) (Auto) 0.2 % Basophils (%) (Auto) 0.2 % Neutrophils # (Auto) 6.9 TH/MM3 Lymphocytes # (Auto) 0.7 TH/MM3 Monocytes # (Auto) 0.3 TH/MM3 Eosinophils # (Auto) 0.0 TH/MM3 Basophils # (Auto) 0.0 TH/MM3 CBC Comment DIFF FINAL Differential Comment Sodium Level 140 MEQ/L Potassium Level 4.1 MEQ/L Chloride Level 99 MEQ/L Carbon Dioxide Level 29.3 MEQ/L Anion Gap 12 MEQ/L Blood Urea Nitrogen 25 MG/DL Creatinine 1.00 MG/DL Estimat Glomerular Filtration 57 ML/MIN Rate Random Glucose 249 MG/DL Calcium Level 8.7 MG/DL Total Bilirubin 0.4 MG/DL Aspartate Amino Transf 24 U/L (AST/SGOT) Alanine Aminotransferase 30 U/L (ALT/SGPT) Alkaline Phosphatase 78 U/L Total Protein 7.4 GM/DL Albumin 3.5 GM/DL Physical Exam General General Appearance: No Acute Distress, Comfortable Eyes Eye Exam: Pupils Equal, Pupils Reactive, Sclera White, Extraocular Movement Intact Throat Throat Exam: Oral Mucosa [place] & Moist, Oral Pharynx Normal Neck Neck Exam: Neck Supple, Trachea Midline Pulmonary Resp Exam: Crackles Resp Remarks Bilateral wheezing. decreased air entry bilateral. Cardiology CV Exam: Regular, Normal Sinus Rhythm Gastrointestinal/Abdomen GI Exam: Soft, Non-Tender, Bowel Sounds Present Musculoskeletal MS Exam: Normal Tone Integumentary Skin Exam: Warm, Dry Extremeties Extremities Exam: No Edema Neurologic Neuro Exam: Alert, Awake, Oriented, Speech Clear, Moving All Extremities VTE Prophylaxis VTE Prophylaxis Meds: Heparin PUD Prophylasis PUD Prophylaxis: Protonix Assessment/Plan Assessment/Plan ASSESSMENT/PLAN 1. This is a 61-year female who came to the ER diagnosed with shortness of breath most likely secondary to COPD/CHF exacerbation, most likely acute on chronic systolic heart failure. We will do strict I's and O's daily with fluid restriction to 1.5 liters a day. Salt restriction to 2 grams a day. The patient is on Lasix 20 mg p.o. daily, Solu-Medrol 60 mg IV q6-hour, Robitussin AC 5 mL q6-hour, DuoNeb nebulization q6h. started Levaquin 500 mg IV Daily 2. A history of bipolar disorder. Continue home medications. 3. History of depression. Continue Zoloft. 4. History of hypertension. Continue home medication. We will monitor blood pressure. 5. History of anxiety, continue his clonazepam. 6. History of congestive heart failure most likely acute on chronic systolic heart failure. Continue the home medications. 7. Drug induced hyperglycemia. We will monitor sugar. 8. History of sleep apnea. The patient is on C-PAP. 9. History of hepatitis C. 10. Hyperlipidemia. Continue home medication. 11. DVT prophylaxis, heparin 5000 units subcutaneous twice a day. 12. GI prophylaxis Protonix 40 mg p.o. daily. Check CBC with diff CMP in AM. We are going to manage the patient on a daily basis and make recommendations on a daily basis. Discussed Condition with: Patient Raghu Saldana MD Jul 03, 2016 08:08
[2016-07-03] MEDS: FLUTICASONE PROPIONATE 50 MCG/ACT 16 GM NASAL SPRAY EACH NARE SCH ×2 (08:31→22:03)
[2016-07-03] MEDS: PANTOPRAZOLE SOD 40 MG DELAYED RELEASE TAB PO SCH (08:32)
[2016-07-03] MEDS: SODIUM CHLORIDE 0.9% FLUSH 10 ML FLUSH IV FLUSH SCH ×2 (08:32→19:49)
[2016-07-03] MEDS: clonazePAM 1 MG TAB PO SCH ×2 (08:32→22:04)
[2016-07-03] MEDS: SERTRALINE HCL 100 MG TAB PO SCH (08:32)
[2016-07-03] MEDS: CARVEDILOL 12.5 MG TAB PO SCH (08:32)
[2016-07-03] MEDS: LISINOPRIL 20 MG TAB PO SCH (08:32)
[2016-07-03] MEDS: FUROSEMIDE 20 MG TAB PO SCH ×2 (08:32→17:14)
[2016-07-03] MEDS: ALBUTEROL SULFATE 90 MCG/ACT HFA 8 GM INHALER INH PRN ×3 (08:34→22:04)
[2016-07-03] MEDS ORDERED: GLUCAGON 1 MG/ML VIAL OTHER PRN (08:45)
[2016-07-03] MEDS ORDERED: DEXTROSE 50% IN WATER 50 ML VIAL(D50) IV PUSH PRN (08:45)
[2016-07-03] MEDS: LEVOFLOXACIN 500 MG PREMIX INJ 100 ML IV SCH (09:20)
[2016-07-03] MEDS: SODIUM CHLOR 0.9% 1000 ML INJ 1,000 ML IV SCH (10:47)
[2016-07-03] MEDS: INSULIN ASPART SUPPLEMENTAL SCALE SQ SCH ×3 (11:13→22:06)
[2016-07-03] MEDS ORDERED: cloNIDine HCL 0.1 MG TAB PO ONE (19:30)
[2016-07-03] MEDS: QUEtiapine FUMARATE 100 MG TAB PO SCH (22:03)
[2016-07-04] VITALS: BP 180/98; PULSE 75; RESP 18; TEMP 95.8; O2SAT 97
[2016-07-04] MEDS: HEPARIN SODIUM - SQ 10,000 UNITS/ML VIAL SQ SCH ×2 (03:00→14:41)
[2016-07-04] MEDS: methylPREDNISolone SOD SUCC 125 MG/2 ML VIAL IVP SCH ×4 (03:01→19:34)
[2016-07-04] MEDS: SODIUM CHLORIDE 0.9% FLUSH 10 ML FLUSH IV FLUSH PRN (03:02)
[2016-07-04] MEDS: traMADol HCL 50 MG TAB PO PRN ×5 (03:06→20:27)
[2016-07-04] MEDS: guaiFENesin/CODEINE SYRUP 200 MG/20 MG/10 ML CUP PO PRN ×5 (03:06→20:26)
[2016-07-04] MEDS: RESP: ALBUTEROL 2.5 MG/IPRATROPIUM 0.5 MG NEB (SCH) INH ×4 (03:23→21:01)
[2016-07-04] MEDS: INSULIN ASPART SUPPLEMENTAL SCALE SQ SCH ×4 (06:20→20:26)
--- NOTE | 2016-07-04 06:32 | MB ---
cc: MILLIE SOTO MD DATE OF CONSULTATION 07/03/[address] Raghu Saldana REASON FOR CONSULTATION COPD exacerbation. HISTORY OF PRESENT ILLNESS Ms. Villegas is a 61-year-old female with history of COPD, sleep apnea. She does not use C-PAP machine, does use oxygen at nighttime. She came to the hospital with worsening of shortness of breath going on for more than a week or so. She has tightness in her chest, cough, a small amount of sputum production, shortness of breath with any activity. Because of worsening of symptoms she came to the hospital. She had a workup done. Her chest x-ray shows no acute cardiopulmonary process. Her CBC showed WBC of 7.9, hemoglobin 10.6, hematocrit 32.4, MCA 80, platelet count 185. Sodium 140, potassium 4.0, chloride 99, CO2 29, BUN 25, creatinine 1.0 and BNP 26. Troponin less than 0.02. PAST MEDICAL HISTORY 1. History of COPD. 2. Obstructive sleep apnea. 3. Bipolar disorder. 4. Hepatitis C. 5. History of cholecystectomy. 6. Anxiety depression. 7. History of lung biopsy done in the past. MEDICATIONS She is currently taking - 1. Insulin. 2. Levaquin 500 mg a day. 3. Robitussin AC cough syrup every 4 hours. 4. Tramadol 50 mg every 4 hours p.r.n. 5. Klonopin 1 mg twice a day. 6. Seroquel 400 mg at nighttime. 7. Flonase nasal spray. 8. Lasix 20 mg a day. 9. Lisinopril 20 mg a day. 10. Protonix 40 mg a day. 11. Zoloft 100 mg a day. 12. Coreg 12.5 mg a day. 13. Albuterol nebulizer treatments. 14. Solu-Medrol 60 mg q. 6 hours. 15. Heparin 5000 q. 12-hours. ALLERGIES ALLERGIC TO PENICILLIN. SOCIAL HISTORY She has history of smoking in the past. No alcohol use. She worked for [employer]. FAMILY HISTORY Noncontributory. REVIEW OF SYSTEMS The patient gets short of breath with any little activity. She says that she has not been using C-PAP machine for a couple of years, though she has the machine at home. She has had multiple sleep studies done in the past, once in [place]. Also had sleep study done here with Dr. Stanford and Dr. Sanford. PHYSICAL EXAMINATION GENERAL: A well-built, well-nourished female, mildly short of breath. VITAL SIGNS: Blood pressure 173/114, heart rate 80, respirations 20, temperature 97.2. HEENT EXAMINATION: Pupils are equal and reactive. Oral mucosa, nasal mucosa normal. NECK: Supple. JVP not raised. CHEST: She has bilateral expiratory rhonchi. CV: S1 and S2 normal. ABDOMEN: Benign. EXTREMITIES: No edema. MANAGER IMMUNOLOGY: She is alert, oriented x 3. No focal deficit. IMPRESSION 1. COPD exacerbation. 2. Bronchitis. 3. Obstructive sleep apnea. 4. Diabetes mellitus. 5. Hypertension. 6. Hyperlipidemia. 7. History of hepatitis C. PLAN 1. We will give her IV Solu-Medrol, aerosol treatment, albuterol and Atrovent. 2. Monitor blood sugars. 3. Subcu heparin. 4. Continue antibiotics. 5. I will encourage her to use acapella and incentive spirometry and advised her to use C-PAP machine when she goes home. Further treatment will depend on her course in the hospital. Thank you Dr. Raghu Saldana for this consultation. MD JULISA Zepeda/SSB /5:49 PM /6:10 AM
[2016-07-04 07:15] LABS: AUTOMATED NEUTROPHIL # 5.3 TH/MM3 (1.8-7.7); BASOPHIL % 0.1 % (0.0-2.0); EOSINOPHIL # 0.1 TH/MM3 (0-0.4); EOSINOPHIL % 0.9 % (0.0-4.0); HEMATOCRIT 31.8 % (35.0-46.0); HEMO FLAGS DIFF FINAL; LYMPH % 11.5 % (9.0-44.0); LYMPHOCYTE # 0.8 TH/MM3 (1.0-4.8); MEAN CELL VOLUME 79.8 FL (80.0-100.0); MEAN CORPUSCULAR HGB CONC 33.8 % (32.0-36.0); MONO % 5.8 % (0.0-8.0); NEUT % 81.7 % (16.0-70.0); PLATELET COUNT 176 TH/MM3 (150-450); RED BLOOD COUNT 3.98 MIL/MM3 (4.00-5.30); RED CELL DISTRIBUTION WIDTH 13.9 % (11.6-17.2); WHITE BLOOD COUNT 6.7 TH/MM3 (4.0-11.0)
[2016-07-04 07:25] LABS: CHLORIDE 97 MEQ/L (98-107); POTASSIUM 3.9 MEQ/L (3.5-5.1); SODIUM (NA) 139 MEQ/L (136-145)
[2016-07-04 07:35] LABS: ANION GAP 10 MEQ/L (5-15); BICARBONATE 31.6 MEQ/L (21.0-32.0); BLOOD UREA NITROGEN 32 MG/DL (7-18)
[2016-07-04 07:38] LABS: ALT (GPT) 51 U/L (10-53); AST (GOT) 41 U/L (15-37); GLOMERULAR FILTRATION RATE 51 ML/MIN (>89)
[2016-07-04 07:39] LABS: TOTAL BILIRUBIN ADULT 0.4 MG/DL (0.2-1.0)
[2016-07-04 07:41] LABS: ALKALINE PHOSPHATASE 74 U/L (45-117)
[2016-07-04] MEDS: FLUTICASONE PROPIONATE 50 MCG/ACT 16 GM NASAL SPRAY EACH NARE SCH ×2 (07:57→20:27)
[2016-07-04] MEDS: ALBUTEROL SULFATE 90 MCG/ACT HFA 8 GM INHALER INH PRN ×2 (07:57→16:33)
[2016-07-04] MEDS: CARVEDILOL 12.5 MG TAB PO SCH (07:59)
[2016-07-04 08:00] VITALS: BP 186/105; PULSE 80; RESP 18; TEMP 97.6; O2SAT 95
[2016-07-04] MEDS: LISINOPRIL 20 MG TAB PO SCH (08:00)
[2016-07-04] MEDS: clonazePAM 1 MG TAB PO SCH ×2 (08:00→20:26)
[2016-07-04] MEDS: PANTOPRAZOLE SOD 40 MG DELAYED RELEASE TAB PO SCH (08:00)
[2016-07-04] MEDS: SODIUM CHLORIDE 0.9% FLUSH 10 ML FLUSH IV FLUSH SCH ×2 (08:00→20:28)
[2016-07-04] MEDS: FUROSEMIDE 20 MG TAB PO SCH ×2 (08:00→16:33)
[2016-07-04] MEDS: SERTRALINE HCL 100 MG TAB PO SCH (08:00)
[2016-07-04] MEDS: LEVOFLOXACIN 500 MG PREMIX INJ 100 ML IV SCH (08:00)
--- NOTE | 2016-07-04 08:38 | HHI.PR ---
Subjective History of Present Illness Patient still SOB and have wheezing and coughing have yellow phlegm. no acute issue on Levaquin 500 mg IV Daily getting better. Review of Systems Constitutional Constitutional: Fatigue, Weakness Pulmonary Respiratory: Coughing, Shortness of Breath, Wheezing Vitals/Results Intake & Output 07/03/16 07/03/16 07/04/16 15:00 23:00 07:00 Intake Total 420 ml 240 ml Balance 420 ml 240 ml Intake Oral 420 ml 240 ml # Voids 2 2 # Bowel Movements 0 1 Vital Signs Vital Signs Date Time Temp Pulse Resp B/P Pulse Ox O2 Delivery O2 Flow Rate FiO2 07/04/16 00:00 95.8 75 18 180/98 97 07/03/16 21:04 97 Nasal Cannula 2.00 07/03/16 20:00 96.6 81 18 146/85 97 07/03/16 18:48 159/107 07/03/16 16:00 97.2 80 20 173/114 95 07/03/16 12:00 96.4 87 20 153/71 96 07/03/16 09:33 96 Nasal Cannula 2.00 CBC/BMP: 07/04/16 0525 07/04/16 0525 Lab Results Laboratory Tests Test 07/04/16 05:25 White Blood Count 6.7 TH/MM3 Red Blood Count 3.98 MIL/MM3 Hemoglobin 10.7 GM/DL Hematocrit 31.8 % Mean Corpuscular Volume 79.8 FL Mean Corpuscular Hemoglobin 27.0 PG Mean Corpuscular Hemoglobin 33.8 % Concent Red Cell Distribution Width 13.9 % Platelet Count 176 TH/MM3 Mean Platelet Volume 6.7 FL Neutrophils (%) (Auto) 81.7 % Lymphocytes (%) (Auto) 11.5 % Monocytes (%) (Auto) 5.8 % Eosinophils (%) (Auto) 0.9 % Basophils (%) (Auto) 0.1 % Neutrophils # (Auto) 5.3 TH/MM3 Lymphocytes # (Auto) 0.8 TH/MM3 Monocytes # (Auto) 0.4 TH/MM3 Eosinophils # (Auto) 0.1 TH/MM3 Basophils # (Auto) 0.0 TH/MM3 CBC Comment DIFF FINAL Differential Comment Sodium Level 139 MEQ/L Potassium Level 3.9 MEQ/L Chloride Level 97 MEQ/L Carbon Dioxide Level 31.6 MEQ/L Anion Gap 10 MEQ/L Blood Urea Nitrogen 32 MG/DL Creatinine 1.10 MG/DL Estimat Glomerular Filtration 51 ML/MIN Rate Random Glucose 219 MG/DL Calcium Level 8.8 MG/DL Total Bilirubin 0.4 MG/DL Aspartate Amino Transf 41 U/L (AST/SGOT) Alanine Aminotransferase 51 U/L (ALT/SGPT) Alkaline Phosphatase 74 U/L Total Protein 7.2 GM/DL Albumin 3.5 GM/DL Physical Exam General General Appearance: No Acute Distress, Comfortable Eyes Eye Exam: Pupils Equal, Pupils Reactive, Sclera White, Extraocular Movement Intact Throat Throat Exam: Oral Mucosa [place] & Moist, Oral Pharynx Normal Neck Neck Exam: Neck Supple, Trachea Midline Pulmonary Resp Exam: Crackles Resp Remarks Bilateral wheezing. decreased air entry bilateral...improving. Cardiology CV Exam: Regular, Normal Sinus Rhythm Gastrointestinal/Abdomen GI Exam: Soft, Non-Tender, Bowel Sounds Present Musculoskeletal MS Exam: Normal Tone Integumentary Skin Exam: Warm, Dry Extremeties Extremities Exam: No Edema Neurologic Neuro Exam: Alert, Awake, Oriented, Speech Clear, Moving All Extremities VTE Prophylaxis VTE Prophylaxis Meds: Heparin PUD Prophylasis PUD Prophylaxis: Protonix Assessment/Plan Assessment/Plan ASSESSMENT/PLAN 1. This is a 61-year female who came to the ER diagnosed with shortness of breath most likely secondary to COPD/CHF exacerbation, most likely acute on chronic systolic heart failure. We will do strict I's and O's daily with fluid restriction to 1.5 liters a day. Salt restriction to 2 grams a day. The patient is on Lasix 20 mg p.o. daily, Solu-Medrol 60 mg IV q6-hour, Robitussin AC 5 mL q6-hour, DuoNeb nebulization q6h. on Levaquin 500 mg IV Daily 2. A history of bipolar disorder. Continue home medications. 3. History of depression. Continue Zoloft. 4. History of hypertension. Continue home medication. We will monitor blood pressure. 5. History of anxiety, continue his clonazepam. 6. History of congestive heart failure most likely acute on chronic systolic heart failure. Continue the home medications. 7. Drug induced hyperglycemia. We will monitor sugar. 8. History of sleep apnea. The patient is on C-PAP. 9. History of hepatitis C. 10. Hyperlipidemia. Continue home medication. 11. DVT prophylaxis, heparin 5000 units subcutaneous twice a day. 12. GI prophylaxis Protonix 40 mg p.o. daily. Check CBC with diff CMP in AM. We are going to manage the patient on a daily basis and make recommendations on a daily basis. Discussed Condition with: Patient Raghu Saldana MD Jul 04, 2016 08:38
[2016-07-04 12:00] VITALS: BP 145/92; PULSE 82; RESP 18; TEMP 98; O2SAT 95
[2016-07-04 16:00] VITALS: BP 163/86; PULSE 78; RESP 18; TEMP 98; O2SAT 95
--- NOTE | 2016-07-04 18:10 | HHI.PR ---
Subjective Remarks 61 YOWF with COPD exac, Bronchitis,DM,HTN,TAM Still has wheezing Cough with small amount of sp no fever Uses 02 Objective Vital Signs Vital Signs Date Time Temp Pulse Resp B/P Pulse Ox O2 Delivery O2 Flow Rate FiO2 07/04/16 12:00 98.0 82 18 145/92 95 07/04/16 08:00 97.6 80 18 186/105 95 07/04/16 00:00 95.8 75 18 180/98 97 07/03/16 21:04 97 Nasal Cannula 2.00 07/03/16 20:00 96.6 81 18 146/85 97 07/03/16 18:48 159/107 I/O 07/03/16 07/03/16 07/03/16 07/04/16 07/04/16 07/04/16 07:00 15:00 23:00 07:00 15:00 23:00 Intake Total 460 ml 420 ml 240 ml Balance 460 ml 420 ml 240 ml Intake Oral 460 ml 420 ml 240 ml # Voids 2 2 2 # Bowel Movements 0 0 1 Result Diagram: 07/04/16 0525 07/04/16 0525 Objective Remarks GENERAL: WBWN WF, mild sob SKIN: Warm and dry. HEAD: Normocephalic. EYES: No scleral icterus. No injection or drainage. NECK: Supple, trachea midline. No JVD or lymphadenopathy. CARDIOVASCULAR: Regular rate and rhythm without murmurs, gallops, or rubs. RESPIRATORY: Breath sounds equal bilaterally. No accessory muscle use. Exp rhonchi GASTROINTESTINAL: Abdomen soft, non-tender, nondistended. MUSCULOSKELETAL: No cyanosis, or edema. BACK: Nontender without obvious deformity. No CVA tenderness. A/P Assessment and Plan COPD Exac Bronchitis DM HTN TAM H/O Hepatitis C PLAN: IV Solumedrol Aerosol nebs Cont Abx symbicort Bid Monitor BS Encourage to use Acapella and IS. Edward Siddiqui MD Jul 04, 2016 18:10
[2016-07-04] MEDS: cloNIDine HCL 0.1 MG TAB PO PRN (19:33)
[2016-07-04 20:00] VITALS: BP 197/108; PULSE 82; RESP 20; TEMP 98; O2SAT 96
[2016-07-04] MEDS: QUEtiapine FUMARATE 100 MG TAB PO SCH (20:27)
[2016-07-04 21:02] VITALS: O2SAT 94
[2016-07-05] VITALS (8 sets, daily range): BP systolic 128–170; BP diastolic 82–107; PULSE 75–82; RESP 20; TEMP 97.6–98.2; O2SAT 94–99
[2016-07-05] MEDS: traMADol HCL 50 MG TAB PO PRN ×4 (01:59→21:31)
[2016-07-05] MEDS: guaiFENesin/CODEINE SYRUP 200 MG/20 MG/10 ML CUP PO PRN ×4 (01:59→16:53)
[2016-07-05] MEDS: SODIUM CHLORIDE 0.9% FLUSH 10 ML FLUSH IV FLUSH PRN ×2 (02:00→09:12)
[2016-07-05] MEDS: methylPREDNISolone SOD SUCC 125 MG/2 ML VIAL IVP SCH ×3 (02:00→12:07)
[2016-07-05] MEDS: HEPARIN SODIUM - SQ 10,000 UNITS/ML VIAL SQ SCH ×2 (03:00→12:08)
[2016-07-05] MEDS: RESP: ALBUTEROL 2.5 MG/IPRATROPIUM 0.5 MG NEB (SCH) INH ×4 (03:43→21:16)
[2016-07-05] MEDS: INSULIN ASPART SUPPLEMENTAL SCALE SQ SCH ×4 (06:22→22:49)
[2016-07-05 06:44] LABS: AUTOMATED NEUTROPHIL # 6.4 TH/MM3 (1.8-7.7); HEMO FLAGS DIFF FINAL; LYMPH % 10.1 % (9.0-44.0); LYMPHOCYTE # 0.8 TH/MM3 (1.0-4.8); MEAN CELL VOLUME 79.5 FL (80.0-100.0); MEAN CORPUSCULAR HEMOGLOBIN 26.1 PG (27.0-34.0); MEAN CORPUSCULAR HGB CONC 32.8 % (32.0-36.0); MONO % 6.4 % (0.0-8.0); NEUT % 83.5 % (16.0-70.0); PLATELET COUNT 218 TH/MM3 (150-450); RED CELL DISTRIBUTION WIDTH 14.1 % (11.6-17.2); WHITE BLOOD COUNT 7.7 TH/MM3 (4.0-11.0)
[2016-07-05 06:55] LABS: CHLORIDE 96 MEQ/L (98-107); POTASSIUM 4.2 MEQ/L (3.5-5.1); SODIUM (NA) 137 MEQ/L (136-145)
[2016-07-05 06:59] LABS: ANION GAP 10 MEQ/L (5-15); BICARBONATE 30.9 MEQ/L (21.0-32.0); BLOOD UREA NITROGEN 35 MG/DL (7-18)
[2016-07-05 07:02] LABS: ALT (GPT) 91 U/L (10-53); AST (GOT) 56 U/L (15-37); GLOMERULAR FILTRATION RATE 51 ML/MIN (>89)
[2016-07-05 07:03] LABS: TOTAL BILIRUBIN ADULT 0.4 MG/DL (0.2-1.0)
[2016-07-05 07:05] LABS: ALKALINE PHOSPHATASE 81 U/L (45-117)
--- NOTE | 2016-07-05 08:14 | HHI.PR ---
Subjective History of Present Illness Patient SOB , wheezing and cough with yellow phlegm...better. no acute issue on Levaquin 500 mg IV Daily Review of Systems Constitutional Constitutional: Fatigue, Weakness Pulmonary Respiratory: Coughing, Shortness of Breath, Wheezing Vitals/Results Intake & Output 07/04/16 07/04/16 07/05/16 15:00 23:00 07:00 Intake Total 1300 ml 400 ml Balance 1300 ml 400 ml Intake Oral 1300 ml 400 ml # Voids 5 2 # Bowel Movements 0 0 Vital Signs Vital Signs Date Time Temp Pulse Resp B/P Pulse Ox O2 Delivery O2 Flow Rate FiO2 07/05/16 03:43 96 Nasal Cannula 2.00 07/05/16 00:00 97.6 80 20 128/91 97 07/04/16 21:02 94 21 07/04/16 20:00 98.0 82 20 197/108 96 07/04/16 16:00 98.0 78 18 163/86 95 07/04/16 16:00 98.0 78 18 163/86 95 07/04/16 12:00 98.0 82 18 145/92 95 CBC/BMP: 07/05/16 0520 07/05/16 0520 Lab Results Laboratory Tests Test 07/05/16 05:20 White Blood Count 7.7 TH/MM3 Red Blood Count 4.40 MIL/MM3 Hemoglobin 11.5 GM/DL Hematocrit 35.0 % Mean Corpuscular Volume 79.5 FL Mean Corpuscular Hemoglobin 26.1 PG Mean Corpuscular Hemoglobin 32.8 % Concent Red Cell Distribution Width 14.1 % Platelet Count 218 TH/MM3 Mean Platelet Volume 6.7 FL Neutrophils (%) (Auto) 83.5 % Lymphocytes (%) (Auto) 10.1 % Monocytes (%) (Auto) 6.4 % Eosinophils (%) (Auto) 0.0 % Basophils (%) (Auto) 0.0 % Neutrophils # (Auto) 6.4 TH/MM3 Lymphocytes # (Auto) 0.8 TH/MM3 Monocytes # (Auto) 0.5 TH/MM3 Eosinophils # (Auto) 0.0 TH/MM3 Basophils # (Auto) 0.0 TH/MM3 CBC Comment DIFF FINAL Differential Comment Sodium Level 137 MEQ/L Potassium Level 4.2 MEQ/L Chloride Level 96 MEQ/L Carbon Dioxide Level 30.9 MEQ/L Anion Gap 10 MEQ/L Blood Urea Nitrogen 35 MG/DL Creatinine 1.10 MG/DL Estimat Glomerular Filtration 51 ML/MIN Rate Random Glucose 266 MG/DL Calcium Level 8.3 MG/DL Total Bilirubin 0.4 MG/DL Aspartate Amino Transf 56 U/L (AST/SGOT) Alanine Aminotransferase 91 U/L (ALT/SGPT) Alkaline Phosphatase 81 U/L Total Protein 7.2 GM/DL Albumin 3.5 GM/DL Physical Exam General General Appearance: No Acute Distress, Comfortable Eyes Eye Exam: Pupils Equal, Pupils Reactive, Sclera White, Extraocular Movement Intact Throat Throat Exam: Oral Mucosa [place] & Moist, Oral Pharynx Normal Neck Neck Exam: Neck Supple, Trachea Midline Pulmonary Resp Exam: Crackles Resp Remarks Bilateral wheezing. decreased air entry bilateral. Cardiology CV Exam: Regular, Normal Sinus Rhythm Gastrointestinal/Abdomen GI Exam: Soft, Non-Tender, Bowel Sounds Present Musculoskeletal MS Exam: Normal Tone Integumentary Skin Exam: Warm, Dry Extremeties Extremities Exam: No Edema Neurologic Neuro Exam: Alert, Awake, Oriented, Speech Clear, Moving All Extremities VTE Prophylaxis VTE Prophylaxis Meds: Heparin PUD Prophylasis PUD Prophylaxis: Protonix Assessment/Plan Assessment/Plan ASSESSMENT/PLAN 1. This is a 61-year female who came to the ER diagnosed with shortness of breath most likely secondary to COPD/CHF exacerbation, most likely acute on chronic systolic heart failure. We will do strict I's and O's daily with fluid restriction to 1.5 liters a day. Salt restriction to 2 grams a day. The patient is on Lasix 20 mg p.o. daily, Solu-Medrol 60 mg IV q6-hour, Robitussin AC 5 mL q6-hour, DuoNeb nebulization q6h. On Levaquin 500 mg IV Daily 2. A history of bipolar disorder. Continue home medications. 3. History of depression. Continue Zoloft. 4. History of hypertension. Continue home medication. We will monitor blood pressure. 5. History of anxiety, continue his clonazepam. 6. History of congestive heart failure most likely acute on chronic systolic heart failure. Continue the home medications. 7. Drug induced hyperglycemia. We will monitor sugar. 8. History of sleep apnea. The patient is on C-PAP. 9. History of hepatitis C. 10. Hyperlipidemia. Continue home medication. 11. DVT prophylaxis, heparin 5000 units subcutaneous twice a day. 12. GI prophylaxis Protonix 40 mg p.o. daily. Check CBC with diff CMP in AM. We are going to manage the patient on a daily basis and make recommendations on a daily basis. Discussed Condition with: Patient Raghu Saldana MD Jul 05, 2016 08:14
[2016-07-05] MEDS: SODIUM CHLORIDE 0.9% FLUSH 10 ML FLUSH IV FLUSH SCH ×2 (09:00→21:00)
[2016-07-05] MEDS: FLUTICASONE PROPIONATE 50 MCG/ACT 16 GM NASAL SPRAY EACH NARE SCH ×2 (09:00→21:29)
[2016-07-05] MEDS: FUROSEMIDE 20 MG TAB PO SCH ×2 (09:09→16:53)
[2016-07-05] MEDS: SERTRALINE HCL 100 MG TAB PO SCH (09:09)
[2016-07-05] MEDS: clonazePAM 1 MG TAB PO SCH ×2 (09:09→21:28)
[2016-07-05] MEDS: LISINOPRIL 20 MG TAB PO SCH (09:10)
[2016-07-05] MEDS: CARVEDILOL 12.5 MG TAB PO SCH (09:10)
[2016-07-05] MEDS: PANTOPRAZOLE SOD 40 MG DELAYED RELEASE TAB PO SCH (09:11)
[2016-07-05] MEDS: LEVOFLOXACIN 500 MG PREMIX INJ 100 ML IV SCH (09:11)
--- NOTE | 2016-07-05 20:41 | HHI.PR ---
Subjective Remarks 61 YOWF with COPD exac, Bronchitis,DM,HTN,TAM Still has wheezing Cough with small amount of sp no fever Uses 02 No new complaint Objective Vital Signs Vital Signs Date Time Temp Pulse Resp B/P Pulse Ox O2 Delivery O2 Flow Rate FiO2 07/05/16 16:00 97.8 77 20 128/82 99 07/05/16 13:07 20 07/05/16 12:00 98.1 80 20 158/97 96 07/05/16 08:51 97 Nasal Cannula 2.00 07/05/16 08:00 98.2 75 20 143/93 96 07/05/16 03:43 96 Nasal Cannula 2.00 07/05/16 00:00 97.6 80 20 128/91 97 07/04/16 21:02 94 21 I/O 07/04/16 07/04/16 07/04/16 07/05/16 07/05/16 07/05/16 07:00 15:00 23:00 07:00 15:00 23:00 Intake Total 1300 ml 400 ml 850 ml Balance 1300 ml 400 ml 850 ml Intake Oral 1300 ml 400 ml 850 ml # Voids 5 2 5 # Bowel Movements 0 0 Result Diagram: 07/05/16 0520 07/05/16 0520 Objective Remarks GENERAL: WBWN WF, mild sob SKIN: Warm and dry. HEAD: Normocephalic. EYES: No scleral icterus. No injection or drainage. NECK: Supple, trachea midline. No JVD or lymphadenopathy. CARDIOVASCULAR: Regular rate and rhythm without murmurs, gallops, or rubs. RESPIRATORY: Breath sounds equal bilaterally. No accessory muscle use. Exp rhonchi GASTROINTESTINAL: Abdomen soft, non-tender, nondistended. MUSCULOSKELETAL: No cyanosis, or edema. BACK: Nontender without obvious deformity. No CVA tenderness. A/P Assessment and Plan COPD Exac Bronchitis DM HTN TAM H/O Hepatitis C PLAN: IV Solumedrol Aerosol nebs Cont Abx symbicort Bid Change to po steroids in AM Monitor BS Encourage to use Acapella and IS. Edward Siddiqui MD Jul 05, 2016 20:41
[2016-07-05] MEDS: QUEtiapine FUMARATE 100 MG TAB PO SCH (21:28)
[2016-07-05] MEDS: methylPREDNISolone SOD SUCC 40 MG/1 ML VIAL IV SCH (21:29)
[2016-07-06] MEDS: cloNIDine HCL 0.1 MG TAB PO PRN (00:27)
[2016-07-06] MEDS: HEPARIN SODIUM - SQ 10,000 UNITS/ML VIAL SQ SCH (03:26)
[2016-07-06] MEDS: methylPREDNISolone SOD SUCC 40 MG/1 ML VIAL IV SCH ×2 (03:27→09:55)
[2016-07-06 04:00] VITALS: BP 162/97; PULSE 82; RESP 20; TEMP 96; O2SAT 98
[2016-07-06] MEDS: RESP: ALBUTEROL 2.5 MG/IPRATROPIUM 0.5 MG NEB (SCH) INH ×2 (04:29→09:40)
[2016-07-06] MEDS: INSULIN ASPART SUPPLEMENTAL SCALE SQ SCH (07:00)
[2016-07-06 07:48] LABS: AUTOMATED NEUTROPHIL # 6.2 TH/MM3 (1.8-7.7); BASOPHIL # 0.1 TH/MM3 (0-0.2); BASOPHIL % 0.7 % (0.0-2.0); HEMATOCRIT 35.7 % (35.0-46.0); HEMO FLAGS DIFF FINAL; LYMPH % 11.2 % (9.0-44.0); LYMPHOCYTE # 0.8 TH/MM3 (1.0-4.8); MEAN CELL VOLUME 78.5 FL (80.0-100.0); MEAN CORPUSCULAR HEMOGLOBIN 25.5 PG (27.0-34.0); MEAN CORPUSCULAR HGB CONC 32.4 % (32.0-36.0); MONO % 6.2 % (0.0-8.0); NEUT % 81.9 % (16.0-70.0); PLATELET COUNT 224 TH/MM3 (150-450); RED BLOOD COUNT 4.54 MIL/MM3 (4.00-5.30); RED CELL DISTRIBUTION WIDTH 13.5 % (11.6-17.2); WHITE BLOOD COUNT 7.6 TH/MM3 (4.0-11.0)
[2016-07-06 07:55] LABS: CHLORIDE 96 MEQ/L (98-107); POTASSIUM 3.9 MEQ/L (3.5-5.1); SODIUM (NA) 138 MEQ/L (136-145)
[2016-07-06 08:00] VITALS: BP 122/69; PULSE 76; RESP 19; TEMP 98.2; O2SAT 97
[2016-07-06 08:02] LABS: ANION GAP 11 MEQ/L (5-15); BICARBONATE 31.3 MEQ/L (21.0-32.0); BLOOD UREA NITROGEN 33 MG/DL (7-18)
[2016-07-06 08:05] LABS: ALT (GPT) 76 U/L (10-53); AST (GOT) 28 U/L (15-37)
[2016-07-06 08:06] LABS: GLOMERULAR FILTRATION RATE 51 ML/MIN (>89)
[2016-07-06 08:07] LABS: TOTAL BILIRUBIN ADULT 0.4 MG/DL (0.2-1.0)
[2016-07-06 08:08] LABS: ALKALINE PHOSPHATASE 84 U/L (45-117)
--- NOTE | 2016-07-06 08:14 | HHI.PR ---
Subjective History of Present Illness Patient SOB , wheezing and cough with yellow phlegm...better. no acute issue on Levaquin 500 mg IV Daily ok to dc home today. Review of Systems Constitutional Constitutional: Fatigue, Weakness Pulmonary Respiratory: Coughing, Shortness of Breath, Wheezing Vitals/Results Intake & Output 07/05/16 07/05/16 07/06/16 15:00 23:00 07:00 Intake Total 850 ml 1600 ml 360 ml Balance 850 ml 1600 ml 360 ml Intake Oral 850 ml 1600 ml 360 ml # Voids 5 8 3 # Bowel Movements 0 0 Vital Signs Vital Signs Date Time Temp Pulse Resp B/P Pulse Ox O2 Delivery O2 Flow Rate FiO2 07/06/16 08:00 98.2 76 19 122/69 97 07/06/16 04:00 96.0 82 20 162/97 98 07/05/16 21:15 94 Nasal Cannula 2.00 07/05/16 20:00 98.1 82 20 170/107 98 07/05/16 16:00 97.8 77 20 128/82 99 07/05/16 13:07 20 07/05/16 12:00 98.1 80 20 158/97 96 07/05/16 08:51 97 Nasal Cannula 2.00 CBC/BMP: 07/06/16 0730 07/06/16 0730 Lab Results Laboratory Tests Test 07/06/16 07:30 White Blood Count 7.6 TH/MM3 Red Blood Count 4.54 MIL/MM3 Hemoglobin 11.6 GM/DL Hematocrit 35.7 % Mean Corpuscular Volume 78.5 FL Mean Corpuscular Hemoglobin 25.5 PG Mean Corpuscular Hemoglobin 32.4 % Concent Red Cell Distribution Width 13.5 % Platelet Count 224 TH/MM3 Mean Platelet Volume 6.6 FL Neutrophils (%) (Auto) 81.9 % Lymphocytes (%) (Auto) 11.2 % Monocytes (%) (Auto) 6.2 % Eosinophils (%) (Auto) 0.0 % Basophils (%) (Auto) 0.7 % Neutrophils # (Auto) 6.2 TH/MM3 Lymphocytes # (Auto) 0.8 TH/MM3 Monocytes # (Auto) 0.5 TH/MM3 Eosinophils # (Auto) 0.0 TH/MM3 Basophils # (Auto) 0.1 TH/MM3 CBC Comment DIFF FINAL Differential Comment Sodium Level 138 MEQ/L Potassium Level 3.9 MEQ/L Chloride Level 96 MEQ/L Carbon Dioxide Level 31.3 MEQ/L Anion Gap 11 MEQ/L Blood Urea Nitrogen 33 MG/DL Creatinine 1.10 MG/DL Estimat Glomerular Filtration 51 ML/MIN Rate Random Glucose 246 MG/DL Calcium Level 8.5 MG/DL Total Bilirubin 0.4 MG/DL Aspartate Amino Transf 28 U/L (AST/SGOT) Alanine Aminotransferase 76 U/L (ALT/SGPT) Alkaline Phosphatase 84 U/L Total Protein 6.8 GM/DL Albumin 3.3 GM/DL Physical Exam General General Appearance: No Acute Distress, Comfortable Eyes Eye Exam: Pupils Equal, Pupils Reactive, Sclera White, Extraocular Movement Intact Throat Throat Exam: Oral Mucosa [place] & Moist, Oral Pharynx Normal Neck Neck Exam: Neck Supple, Trachea Midline Pulmonary Resp Exam: Crackles Resp Remarks Bilateral wheezing. decreased air entry bilateral...improving. Cardiology CV Exam: Regular, Normal Sinus Rhythm Gastrointestinal/Abdomen GI Exam: Soft, Non-Tender, Bowel Sounds Present Musculoskeletal MS Exam: Normal Tone Integumentary Skin Exam: Warm, Dry Extremeties Extremities Exam: No Edema Neurologic Neuro Exam: Alert, Awake, Oriented, Speech Clear, Moving All Extremities VTE Prophylaxis VTE Prophylaxis Meds: Heparin PUD Prophylasis PUD Prophylaxis: Protonix Assessment/Plan Assessment/Plan ASSESSMENT/PLAN 1. This is a 61-year female who came to the ER diagnosed with shortness of breath most likely secondary to COPD/CHF exacerbation, most likely acute on chronic systolic heart failure. We will do strict I's and O's daily with fluid restriction to 1.5 liters a day. Salt restriction to 2 grams a day. The patient is on Lasix 20 mg p.o. daily, Solu-Medrol 60 mg IV q6-hour, Robitussin AC 5 mL q6-hour, DuoNeb nebulization q6h. On Levaquin 500 mg IV Daily 2. A history of bipolar disorder. Continue home medications. 3. History of depression. Continue Zoloft. 4. History of hypertension. Continue home medication. We will monitor blood pressure. 5. History of anxiety, continue his clonazepam. 6. History of congestive heart failure most likely acute on chronic systolic heart failure. Continue the home medications. 7. Drug induced hyperglycemia. We will monitor sugar. 8. History of sleep apnea. The patient is on C-PAP. 9. History of hepatitis C. 10. Hyperlipidemia. Continue home medication. 11. DVT prophylaxis, heparin 5000 units subcutaneous twice a day. 12. GI prophylaxis Protonix 40 mg p.o. daily. ok to dc home today. f/u with pcp 1 week. Discussed Condition with: Patient Raghu Saldana MD Jul 06, 2016 08:14
[2016-07-06] MEDS ORDERED: CLON1 PO (08:26)
[2016-07-06] MEDS ORDERED: ULTR50TA5 PO (08:26)
[2016-07-06] MEDS ORDERED: LEVA500T PO (08:26)
[2016-07-06] MEDS: FLUTICASONE PROPIONATE 50 MCG/ACT 16 GM NASAL SPRAY EACH NARE SCH (09:00)
[2016-07-06] MEDS: SODIUM CHLORIDE 0.9% FLUSH 10 ML FLUSH IV FLUSH SCH (09:00)
[2016-07-06 09:43] VITALS: O2SAT 97
[2016-07-06] MEDS: FUROSEMIDE 20 MG TAB PO SCH (09:55)
[2016-07-06] MEDS: SERTRALINE HCL 100 MG TAB PO SCH (09:55)
[2016-07-06] MEDS: clonazePAM 1 MG TAB PO SCH (09:55)
[2016-07-06] MEDS: LISINOPRIL 20 MG TAB PO SCH (09:55)
[2016-07-06] MEDS: CARVEDILOL 12.5 MG TAB PO SCH (09:55)
[2016-07-06] MEDS: PANTOPRAZOLE SOD 40 MG DELAYED RELEASE TAB PO SCH (09:55)
[2016-07-06] MEDS ORDERED: LEVOFLOXACIN 500 MG TAB PO SCH (11:00)
--- NOTE | 2016-07-11 08:26 | PQ ---
Physician Query Response Document PATIENT: JETT DORSEY : 1955 ADMIT DATE: 07/01/2016 4:51 PM DISCH DATE: 07/06/2016 12:45 PM RESPONDING PROVIDER #: EAhmed QUERY TEXT: Bronchitis Specificity Bronchitis is documented in the medical record. Please specify the type of bronchitis such as: Acuity: -- Acute -- Acute on chronic -- Chronic -- Other (please specify in the medical record) -- Unable to determine -- Unknown Type: -- Allergic -- Aspiration -- Asthmatic -- Chronic obstructive bronchitis -- Obstructive bronchitis -- Other (please specify in the medical record) -- Unable to determine -- Unknown If you have any additional questions/comments and/or concerns, please do not hesitate to reach out to the CDI/Coding Hotline, Ext. [phone]. The patient's Clinical Indicators include: Pulmonary databases software consultant documents: IMPRESSION : 1. COPD exacerbation. 2. Bronchitis. Placed on antibiotics (levofloxacin). Documented as coughing up yellow phlegm (no specimen obtained ). No fever on admit. Query created by: Gris Matias on 07/10/2016 3:07 PM RESPONSE TEXT: Acute bronchitis. Electronically signed by: Raghu Saldana MD 07/11/2016 8:23 AM
--- NOTE | 2016-07-11 17:30 | MD ---
Cc: RAGHU MACHADO MD ADMISSION DATE: 07/01/2016 DISCHARGE DATE: 07/06/2016 Okay to discharge the patient home. Condition at the time of discharge satisfactory. Activity as tolerated. Diet cardiac diet. ALLERGIES PENICILLIN. DISCHARGE MEDICATIONS Include: 1. Clonazepam 1 mg p.o. b.i.d. 2. Levaquin 500 milligrams p.o. daily. 3. Tramadol 50 mg p.o. q.4 h p.r.n. pain. 4. Albuterol inhaler two puff inhalation q. 4-hour. 5. Carvedilol 12.5 mg p.o. daily. 6. Clonazepam 1 mg p.o. b.i.d. 7. Flonase nasal spray 50 micrograms each nares twice a day. 8. Furosemide 20 milligrams p.o. daily. 9. Lisinopril 20 milligrams p.o. daily. 10. Dulera two puff inhalation twice a day. 11. Protonix 40 milligrams p.o. daily. 12. Seroquel 500 milligrams p.o. bedtime. 13. Zoloft 100 milligrams p.o. daily. The patient advised to follow with primary care physician and pulmonary in one week. ADMISSION DIAGNOSES 1. Shortness of breath secondary to COPD. 2. CHF exacerbation. DISCHARGE DIAGNOSES 1. Shortness of breath improved. 2. Chronic obstructive pulmonary disease, congestive heart failure exacerbation improved. 3. The patient had most likely very minimal acute on chronic systolic heart failure. 4. History of bipolar disorder. 5. History of depression. 6. History of hypertension. 7. Anxiety. 8. Drug induced hyperglycemia. 9. History of sleep apnea. 10. History of hepatitis C. 11. History of hyperlipidemia. HOSPITAL COURSE This is a 61-year female who came to the ER with shortness of breath likely diagnosed with COPD, CHF exacerbation. The patient was given empiric antibiotic. The patient was given DuoNeb nebulization. The patient was given heparin during hospital stay. The patient remained stable. No acute event happened. Dr. Siddiqui had seen the patient during hospital stay. I agreed with the plan. A chest x-ray was done and shows nothing acute. The patient remained stable. No acute event happened during hospital stay. The patient had anemia with hemoglobin of 11.5, 10.7 around that, but remained stable. The patient had mild renal insufficiency with a creatinine 1.1. The patient had glucose high during hospital stay. The patient discharged in satisfactory condition. Further details in the medical record. Raghu Machado MD EA/AURE /2:19 PM /5:14 PM
== END 2016-07-06 12:45 | disposition home or self-care (01) | DRG 190 ==
LOC: PHED 00:41 → INTOOBSV 02:12 → PHEDA 02:12 → PHEDH 06:12 → PHICU 08:30 → OBSVTOIN 07-01 16:51 → PH3A 07-02 08:40
PROVIDERS: ADMIT Family Medicine; ATTEND Family Medicine
DX: J44.1 Chronic obstructive pulmonary disease with (acute) exacerbation (principal); I50.23 Acute on chronic systolic (congestive) heart failure; J44.0 Chronic obstructive pulmonary disease with (acute) lower respiratory infection; J20.9 Acute bronchitis, unspecified; I73.9 Peripheral vascular disease, unspecified; F31.9 Bipolar disorder, unspecified; F32.9 Major depressive disorder, single episode, unspecified; I10 Essential (primary) hypertension; F41.8 Other specified anxiety disorders; B19.20 Unspecified viral hepatitis C without hepatic coma; E78.5 Hyperlipidemia, unspecified; Z87.891 Personal history of nicotine dependence; G47.33 Obstructive sleep apnea (adult) (pediatric); K21.9 Gastro-esophageal reflux disease without esophagitis; R73.9 Hyperglycemia, unspecified; T38.0X5A Adverse effect of glucocorticoids and synthetic analogues, initial encounter; Y92.239 Unspecified place in hospital as the place of occurrence of the external cause; Z88.0 Allergy status to penicillin
CPT/HCPCS: 71010; 80053; 82948; 83735; 83880; 84484; 85025; 93005; 94150; 94640; 94664; 94667; 94668; 96374; 96375; G0378; J1644; J1815; J1956; J2405; J2920; J2930; J7030; J7613